=== PATIENT | female | born 1960 | race Caucasian/White ===

== ENCOUNTER → 2016-06-01 | Outpatient (CLI) | payer MEDICAID ==
[~2016-06-01] MED LIST: ASACOL HD800 M1 PO; ASPIR-LOW81 MG PO; ASPIRIN EC325 MG PO; ATORVASTATIN CA80 MG PO; BENTYL GENERIC10 MG PO; BENTYL20 MG PO; BISOPROLOL 5MG T5 MG PO; BUDESONIDE PO; CELEXA 20MG TAB20 MG PO; CIPRO 500MG TA500 MG PO; CITALOPRAM20 MG PO; ENTOCORT EC3 M1 PO; FISH OIL O1600 MG/5 PO; FUROSEMIDE40 MG PO; ISOSORBIDE MONO30 MG PO; ISOSORBIDE MONO60 MG PO; LASIX 40MG. TAB40 MG PO; LASIX 80MG. TAB80 MG PO; LISINOPRIL 10MG10 MG PO; LISINOPRIL 5MG T5 MG PO; LISINOPRIL2.5 MG PO; LOPERAMIDE2 MG PO; LOPID600 MG PO; LORAZEPAM1 MG/TABLE PO; MAG-OX 400MG T400 MG PO; METOPROLOL 25 M25 MG PO; NICODERM C21 MG/24 H TD; NITROSTAT0.4 MG SL; OMEPRAZOLE20 MG PO; PAXIL20 MG PO; PHENERGAN 25MG.25 M1 PO; PLAVIX75 MG PO; POTASSIUM CHLO20 ME2 PO; PRAVASTATIN 40M40 MG PO; PRILOSEC20 M1 PO; WELLBUTRIN 150150 MG PO; ZOFRAN ODT8 MG PO
--- NOTE | 2016-06-04 14:36 | RADIOLOGY REPORT PS360 ---
[facility] History and Indications: ASHD previous LA and congestive heart failure obesity hypertension hyperlipidemia tobacco use family history, chest pain and shortness of breath. Procedure: Patient received 0.4 mg of Lexiscan, resting heart rate was 85 bpm resting blood pressure 134/79, with Lexiscan maximum heart rate achieved was 98 bpm which is less than 85% of the maximum predicted heart rate, and the blood pressure was 141/76 with Lexiscan patient complained of chest pain and shortness of breath. Electrocardiogram: Resting electrocardiogram showed sinus rhythm first degree AV block abnormal P wave, anteroseptal infarct age indeterminate, with Lexiscan there is less than 1.[address] segment depression noted from the baseline EKG, the EKG portion of the Lexiscan is nondiagnostic Cardiac stress and resting SPECT images: Cardiac stress and rest SPECT images were obtained using technetium 99 Myoview 10.3 MCI at rest 31.4 MCI at stress, gated SPECT further analysis of segmental wall motion and calculation of the ejection fraction was also done. Cardiac stress and rest SPECT images show severely reduced tracer activity and moderate to large size area involving the anterior, anteroapical and anteroseptal wall mostly in the fixed pattern consistent with extensive area of prior myocardial scarring with minimal [place]ia-infarct ischemia at the apex. The left ventricle is dilated with stress and rest computer derived ejection fraction is 39% with marked anteroapical apex and anteroseptal wall akinesis, however there visually estimated ejection fraction is approximately 25-30%. The right ventricle is mildly enlarged with normal contractility. Conclusion: 1. The EKG portion of the Lexiscan is nondiagnostic. 2. Extensive prior myocardial scarring involving the anterior anteroapical, apical and anteroseptal wall with minimal [place]ia-infarct ischemia at the apex. Computer derived ejection fraction is 39% which is likely an over estimation by gated SPECT, however visually estimated ejection fraction is 25-30% with segmental wall motion abnormalities as described above, the right ventricle is mildly enlarged with normal contractility. 3. Abnormal Lexiscan Myoview study.
== END ==
LOC: RAD 07:01
DX: I50.9 Heart failure, unspecified (principal); R60.0 Localized edema; E78.5 Hyperlipidemia, unspecified; I10 Essential (primary) hypertension; R06.02 Shortness of breath; J44.9 Chronic obstructive pulmonary disease, unspecified
CPT/HCPCS: A9502; J2785

== ENCOUNTER 2016-06-12 07:17 | Inpatient (IN) | payer MEDICAID ==
[~2016-06-12] VITALS: Ht 165.1 cm; Wt 104.4 kg
[~2016-06-12 07:17] MED LIST changes: -LASIX 40MG. TAB40 MG PO; -LISINOPRIL 5MG T5 MG PO; -WELLBUTRIN 150150 MG PO
[2016-06-12 08:08] LABS: BUN 60 mg/dL (7-18); HEMOGLOBIN 11.2 g/dL (12.2-16.2)
[2016-06-12 08:09] LABS: GFR (ESTIMATED) 12 ML/MIN (59-); LYMPH # 1.8 K/mm3 (0.7-4.5); LYMPH % 23.5 % (10-50.0)
--- NOTE | 2016-06-12 12:20 | ACUTE CARE PROGRESS NOTE (QUA) ---
Progress Notes Subjective Date 06/12/16 Time 0900 Note 55 yo WF here as outpatient for cardiac cath this AM but labwork revealed worsening of renal status, likely due to recent increase in diuretics. The procedure was cancelled and pt admitted for IVF and monitoring of renal status. Cardiac cath was scheduled for further evaluation of chest pain, SOB and abnormal stress test. Objective Findings Last VS-Temp:98.2 B/P:128/57 Pulse:93 Resp:20 SaO2:89 Last weight lbs:219 oz:4 Kg: Method:Digital Scales Exam General appearance: awake, no acute distress, appears fatigued Cardiovascular: regular rate & rhythm Respiratory: clear to auscultation ABD: soft, no tenderness Extremities: moves all, no peripheral edema Neuro: alert, intact, oriented, speech clear Reviewed: medications, vital signs, lab results Assessment/Plan Problem List 1. Chest pain 2. Abnormal stress test 3. Dyspnea 4. Tobacco abuse 5. HTN (hypertension) 6. COPD (chronic obstructive pulmonary disease) 7. Cardiomyopathy Patient condition Guarded Plan: Admitted for IVF and monitoring of renal status. Postpone cardiac cath for now. This inpt stay is expected to cross 2 MNs from start of care Yes (Tramaine Bee) Assessment/Plan Problem List 1. Chest pain 2. Abnormal stress test 3. Dyspnea 4. Tobacco abuse 5. HTN (hypertension) 6. COPD (chronic obstructive pulmonary disease) 7. Cardiomyopathy (Ritika ALMAGUER,Rachid Cheng) at 1220
[2016-06-12] MEDS ORDERED: LASIX 40MG. TAB40 MG PO (12:46)
[2016-06-12] MEDS ORDERED: LISINOPRIL 5MG T5 MG PO (12:47)
[2016-06-12] MEDS ORDERED: WELLBUTRIN 150150 MG PO (12:50)
--- NOTE | 2016-06-12 14:11 | HISTORY AND PHYSICAL REPORT ---
Demographics: Admit date: 06/12/16 Chief complaint: sob PRIMARY DIAGNOSIS: ABN STRESS Allergies: Coded Allergies: mesalamine (From Asacol) (Severe, KIDNEY FAILURE 09/19/15) Penicillins (Intermediate, I-RASH, ITCHING 09/19/15) History of present illness: History of present illness: this wf who has cad and chf was seen today with abn stress and was found to be in arf and after consultation with card was admitted for ivf and then card eval- no chest pain at rest but feels sob and easlly fatigued with ambulation Past medical history: Family HX Family Hx Insignificant Yes Immunization HX DT/Tetanus 5-10 Years Ago Flu [id number] Flu Season Pneumonia Received In Past TB Test in last year No General Angina: Yes MO: No Hypertension? Yes Hyperlipidemia? Yes CHF? Yes COPD? Yes Asthma? No Anemia? Yes Hernia? Yes Thyroid Problems? No CVA? No Seizures? No Diabetes? No UTI? No Stones? No GB Disease: No Nephritic Syndrome? No Hepatitis? No Sickle Cell Disease? No Cataracts? No Glaucoma? No MRSA? No TB? No Cancer? No More? Yes Additional hx: DEPRESSION ANXIETY Past Surgical HX Previous Surgery?Y Hysterectomy-Total C-SECTIONS X 2 LEFT ELBOW ANGIOPLASTY STENTS X3 Current home meds: Active Scripts POTASSIUM CHL (Potassium Chloride) 20 MEQ PO DAILY #30 TAB Prov: 09/02/14 MAGNESIUM OXIDE (Magnesium Oxide) 400 MG PO BID #60 TAB Prov: 04/14/14 Reported Medications Furosemide (Lasix 80MG) 80 MG PO DAILY Isosorbide Mononitrate (Isosorbide Mononitrate ER) 30 MG PO DAILY Atorvastatin Calcium 80 MG PO QHS Dicyclomine Hcl (Bentyl (Generic) 10MG Capsule) 10 MG PO QID Lorazepam (Lorazepam 1MG) 1 MG PO BID Omeprazole (Omeprazole 20MG) 20 MG PO BID Gemfibrozil (Lopid) 600 MG PO BID Furosemide (Lasix 40MG) 40 MG PO DAILY LISINOPRIL (Lisinopril) 5 MG PO DAILY Bupropion Hcl Sr (Wellbutrin SR 150MG) 150 MG PO BID Social Hx: Smoking HX Tobacco Yes Type Cigarettes Packs/day < 1 PACK Are you/the child exposed to second-hand smoke: Yes Alcohol Alcohol: No Hx of Drug Use Drug Use? No Patien't marital status is Patient's support system is good Review of systems: Constitutional No: fever. Eyes No: drainage. Ears, Nose, Mouth, Throat No ear pain, No epistaxis, No throat pain Respiratory see HPI, shortness of breath. No: cough, wheezing. Cardiovascular see HPI, chest pain, No palpitations, No syncope, other Gastrointestinal/Abdominal see HPI, No constipated, No diarrhea, No nausea, poor appetite, poor fluid intake Genitourinary No: dysuria, frequency, hesitancy, hematuria. Musculoskeletal No: back pain, joint pain, neck pain. Skin No: rash. Neurological No: tremors, seizure disorder. Psychiatric No: depressed. Exam: Lab data for last 24 hours: Laboratory Tests 06/12/16 0750: Sodium 129 L, Potassium 5.2 H, Chloride 95 L, Carbon Dioxide 28, BUN 60 H, Creatinine 3.8 H, Estimated GFR (MDRD) 12 *L, Glucose 167 H, Calcium 9.1, WBC 7.6, RBC 3.85 L, Hgb 11.2 L, Hct 34.6 L, MCV 89.8, RDW 14.7, Plt Count 242, Gran % 71.5, Gran # 5.4, Lymphocytes % 23.5, Monocytes % 5.0, Lymphocytes # 1.8, Monocytes # 0.4, PUBS MCHC 32.4, MCH 29.1 Admission vital signs: 1ST Vital Signs Result Date Time Pulse Ox 89 06/12 901 B/P 128/57 06/12 901 Temp 98.2 06/12 901 Pulse 93 06/12 901 Resp 20 06/12 901 Exam General appearance: alert, awake Eyes: anicteric, PERRLA ENT: dry mucous membranes Neck: no JVD Cardiovascular: regular rate & rhythm, murmur Respiratory: diminished breath sounds ABD: soft Genitourinary: no hematuria Extremities: moves all Musculoskeletal: equal muscle strength Skin: dry Neuro: alert, site specialist II-XII nml as tested Plan: Problem List 1. Chest pain 2. Abnormal stress test 3. Dyspnea 4. Tobacco abuse 5. HTN (hypertension) 6. COPD (chronic obstructive pulmonary disease) 7. Cardiomyopathy 8. CAD (coronary artery disease) 9. Acute renal failure Plan: will hydrate and then card will eval pt at 4046
[2016-06-12 15:42] VITALS: BP 95/54
[2016-06-12 19:31] VITALS: BP 104/56
[2016-06-12 20:16] VITALS: BP 104/56
[2016-06-12 23:50] VITALS: BP 115/62
[2016-06-13 03:56] VITALS: BP 94/57
[2016-06-13 06:51] LABS: LYMPH # 1.8 K/mm3 (0.7-4.5); LYMPH % 33.3 % (10-50.0)
[2016-06-13 07:18] VITALS: BP 102/60
--- NOTE | 2016-06-13 07:30 | PHARMACY CLINIC NOTE ---
Patient Demographics Patient Demographics Admission date: 06/12/16 Date: 06/13/16 Time: 728 Allergies Coded Allergies: mesalamine (From Asacol) (Severe, KIDNEY FAILURE 09/19/15) Penicillins (Intermediate, I-RASH, ITCHING 09/19/15) HEIGHT- FT: 5 IN: 5.00 K.450 VTE General Information Labs: Laboratory Tests 06/12 0750 Hematology Hgb (12.2 - 16.2 g/dL) 11.2 L Hct (37.0 - 47.0 %) 34.6 L Plt Count (142 - 424 K/mm3) 242 Disclaimer The following section includes nursing documentation that has been pulled in for pharmacy review. Patient's VTE score: 5 Patient's VTE Risk: LOW RISK VTE prophylaxis NQF 0371 VTE prophylaxis ordered? Yes Type of prophylaxis/treatment: ROSCOE at 0730
[2016-06-13 07:37] LABS: HEMOGLOBIN 10.5 g/dL (12.2-16.2)
--- NOTE | 2016-06-13 08:29 | ACUTE CARE PROGRESS NOTE (QUA) ---
See Addendum Progress Notes Subjective Date 06/13/16 Time 0827 Note 55 yo WF in bed in NAD. Feeling better but still with fatigue and some SOA. No chest pains Objective Findings Last VS-Temp:98.3 B/P:102/60 Pulse:80 Resp:20 SaO2:92 ROOM AIR Last weight lbs:219 oz:4 [id number] Method:Digital Scales Exam General appearance: alert, awake, no acute distress Cardiovascular: regular rate & rhythm Respiratory: rhonchi, wheezing Extremities: moves all, no peripheral edema Neuro: alert, intact, oriented, speech clear Reviewed: medications, vital signs, lab results Assessment/Plan Problem List 1. Chest pain Qualifiers: Chest pain type: unspecified Qualified Code: R07.9 - Chest pain, unspecified 2. Abnormal stress test Assessment/Plan: Planning LHC when renal status returns to normal. 3. Dyspnea Qualifiers: Dyspnea type: shortness of breath Qualified Code: R06.02 - Shortness of breath 4. Tobacco abuse 5. HTN (hypertension) Qualifiers: Hypertension type: essential hypertension Qualified Code: I10 - Essential ( primary) hypertension 6. COPD (chronic obstructive pulmonary disease) 7. Cardiomyopathy 8. CAD (coronary artery disease) Qualifiers: Coronary Disease-Associated Artery/Lesion type: [place] artery [place] vs. transplanted heart: [place] heart Associated angina: with unstable angina Qualified Code: I25.110 - Atherosclerotic heart disease of [place] coronary artery with unstable angina pectoris 9. Acute renal failure Assessment/Plan: Cr down from 3.8 to 2.1 this AM. Continue IVF. Patient condition Improving Plan: Will tentatively plan for LHC in AM but will repeat BMP prior to final decision. Will obtain echo to evaluate LV size and function due to history of CAD/stents and also to evaluate RV size and function with history of COPD. This inpt stay is expected to cross 2 MNs from start of care Yes at 1232
--- NOTE | 2016-06-13 08:29 | ACUTE CARE PROGRESS NOTE (QUA) ---
See Addendum Progress Notes Subjective Date 06/13/16 Time 0827 Note 55 yo WF in bed in NAD. Feeling better but still with fatigue and some SOA. No chest pains Objective Findings Last VS-Temp:98.3 B/P:102/60 Pulse:80 Resp:20 SaO2:92 ROOM AIR Last weight lbs:219 oz:4 [id number] Method:Digital Scales Exam General appearance: alert, awake, no acute distress Cardiovascular: regular rate & rhythm Respiratory: rhonchi, wheezing Extremities: moves all, no peripheral edema Neuro: alert, intact, oriented, speech clear Reviewed: medications, vital signs, lab results Assessment/Plan Problem List 1. Chest pain Qualifiers: Chest pain type: unspecified Qualified Code: R07.9 - Chest pain, unspecified 2. Abnormal stress test Assessment/Plan: Planning LHC when renal status returns to normal. 3. Dyspnea Qualifiers: Dyspnea type: shortness of breath Qualified Code: R06.02 - Shortness of breath 4. Tobacco abuse 5. HTN (hypertension) Qualifiers: Hypertension type: essential hypertension Qualified Code: I10 - Essential ( primary) hypertension 6. COPD (chronic obstructive pulmonary disease) 7. Cardiomyopathy 8. CAD (coronary artery disease) Qualifiers: Coronary Disease-Associated Artery/Lesion type: [place] artery [place] vs. transplanted heart: [place] heart Associated angina: with unstable angina Qualified Code: I25.110 - Atherosclerotic heart disease of [place] coronary artery with unstable angina pectoris 9. Acute renal failure Assessment/Plan: Cr down from 3.8 to 2.1 this AM. Continue IVF. Patient condition Improving Plan: Will tentatively plan for LHC in AM but will repeat BMP prior to final decision. Will obtain echo to evaluate LV size and function due to history of CAD/stents and also to evaluate RV size and function with history of COPD. This inpt stay is expected to cross 2 MNs from start of care Yes at 1235
--- NOTE | 2016-06-13 13:00 | ACUTE CARE PROGRESS NOTE (QUA) ---
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 Chest pain 2. Abnormal stress test 3. Dyspnea 4. Tobacco abuse 5. HTN (hypertension) 6. COPD (chronic obstructive pulmonary disease) 7. Cardiomyopathy 8. CAD (coronary artery disease) 9. Acute renal failure Patient condition Improving Plan: make medication changes This inpt stay is expected to cross 2 MNs from start of care Yes at 1300
--- NOTE | 2016-06-13 13:00 | ACUTE CARE PROGRESS NOTE (QUA) ---
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 Chest pain 2. Abnormal stress test 3. Dyspnea 4. Tobacco abuse 5. HTN (hypertension) 6. COPD (chronic obstructive pulmonary disease) 7. Cardiomyopathy 8. CAD (coronary artery disease) 9. Acute renal failure Patient condition Improving Plan: make medication changes This inpt stay is expected to cross 2 MNs from start of care Yes at 1300
[2016-06-13 15:36] VITALS: BP 101/50
[2016-06-13 19:33] VITALS: BP 92/54
[2016-06-13 23:40] VITALS: BP 91/47
[2016-06-14] VITALS (10 sets, daily range): BP systolic 103–145; BP diastolic 51–89
--- NOTE | 2016-06-14 08:13 | ACUTE CARE PROGRESS NOTE (QUA) ---
Progress Notes Subjective Date 06/14/16 Time 0811 Note 55 yo WF in bed in NAD. No chest pain overnight. Still with SOA and wheezing on exam. Objective Findings Last VS-Temp:97.5 B/P:115/60 Pulse:69 Resp:16 SaO2:95 ROOM AIR Last weight lbs:230 oz:4 K.44 Method:Bed Scales Exam General appearance: alert, awake, no acute distress Cardiovascular: regular rate & rhythm Respiratory: expiratory wheezing Extremities: moves all, no peripheral edema Neuro: alert, intact, oriented Reviewed: medications, vital signs, lab results Assessment/Plan Problem List 1. Chest pain Qualifiers: Chest pain type: unspecified Qualified Code: R07.9 - Chest pain, unspecified 2. Abnormal stress test 3. Dyspnea Qualifiers: Dyspnea type: shortness of breath Qualified Code: R06.02 - Shortness of breath 4. Tobacco abuse 5. HTN (hypertension) Qualifiers: Hypertension type: essential hypertension Qualified Code: I10 - Essential ( primary) hypertension 6. COPD (chronic obstructive pulmonary disease) 7. Cardiomyopathy 8. CAD (coronary artery disease) Qualifiers: Coronary Disease-Associated Artery/Lesion type: [place] artery [place] vs. transplanted heart: [place] heart Associated angina: with unstable angina Qualified Code: I25.110 - Atherosclerotic heart disease of [place] coronary artery with unstable angina pectoris 9. Acute renal failure Patient condition Stable Plan: Cr down to 1.3 today. Will proceed with cardiac cath this AM. This inpt stay is expected to cross 2 MNs from start of care Yes at 0813
--- NOTE | 2016-06-14 08:13 | ACUTE CARE PROGRESS NOTE (QUA) ---
Progress Notes Subjective Date 06/14/16 Time 0811 Note 55 yo WF in bed in NAD. No chest pain overnight. Still with SOA and wheezing on exam. Objective Findings Last VS-Temp:97.5 B/P:115/60 Pulse:69 Resp:16 SaO2:95 ROOM AIR Last weight lbs:230 oz:4 K.44 Method:Bed Scales Exam General appearance: alert, awake, no acute distress Cardiovascular: regular rate & rhythm Respiratory: expiratory wheezing Extremities: moves all, no peripheral edema Neuro: alert, intact, oriented Reviewed: medications, vital signs, lab results Assessment/Plan Problem List 1. Chest pain Qualifiers: Chest pain type: unspecified Qualified Code: R07.9 - Chest pain, unspecified 2. Abnormal stress test 3. Dyspnea Qualifiers: Dyspnea type: shortness of breath Qualified Code: R06.02 - Shortness of breath 4. Tobacco abuse 5. HTN (hypertension) Qualifiers: Hypertension type: essential hypertension Qualified Code: I10 - Essential ( primary) hypertension 6. COPD (chronic obstructive pulmonary disease) 7. Cardiomyopathy 8. CAD (coronary artery disease) Qualifiers: Coronary Disease-Associated Artery/Lesion type: [place] artery [place] vs. transplanted heart: [place] heart Associated angina: with unstable angina Qualified Code: I25.110 - Atherosclerotic heart disease of [place] coronary artery with unstable angina pectoris 9. Acute renal failure Patient condition Stable Plan: Cr down to 1.3 today. Will proceed with cardiac cath this AM. This inpt stay is expected to cross 2 MNs from start of care Yes at 0813
--- NOTE | 2016-06-14 09:18 | ACUTE CARE PROGRESS NOTE (QUA) ---
Progress Notes Subjective Date 06/14/16 Time 0918 Patient/family reports: feeling better, no complaints Nursing reports: alert Objective Findings Laboratory Tests 06/14/16 0615: Sodium 140, Potassium 4.3, Chloride 106, Carbon Dioxide 30, BUN 25 H, Creatinine 1.3 H, Estimated Creat Clear 81, Estimated GFR (MDRD) 43 L, Glucose 127 H, Calcium 8.6 Vital Signs Date Time Temp Pulse Resp B/P Pulse O2 O2 Flow FiO2 Ox Delivery Rate 06/14 737 97.5 69 16 115/60 95 ROOM AIR 06/14 0352 97.5 71 16 114/67 91 ROOM AIR 06/14 0010 66 103/58 06/13 2340 97.8 71 16 91/47 91 ROOM AIR 06/13 2124 98.3 79 18 92/54 91 06/13 2120 18 06/13 1933 98.3 79 18 92/54 91 ROOM AIR 06/13 1536 97.9 76 20 101/50 93 ROOM AIR Current Medications Fentanyl Citrate 25 MCG PRN PRN IV Fentanyl Citrate 50 MCG PRN PRN IV Flumazenil 0.2 MG PRN PRN IV Heparin Sodium/Sodium Chloride 3,000 UNITS PRN PRN IV Midazolam HCl 1 MG PRN PRN IV Midazolam HCl 1 MG PRN PRN IV Naloxone HCl 0.4 MG [id number] PRN IV Nitroglycerin 800 MCG PRN PRN IV Verapamil HCl 5 MG PRN PRN IV Lidocaine HCl 20 ML ONCE ONE IJ (DC) Diphenhydramine HCl 0 .STK-MED ONE .ROUTE (DC) Heparin Sodium/Sodium Chloride 1,500 ML .STK-MED ONE IV (DC) Lidocaine HCl 0 .STK-MED ONE .ROUTE (DC) Sodium Chloride 1,000 ML .STK-MED ONE IV (DC) Lorazepam 0 .STK-MED ONE .ROUTE (DC) Bupropion HCl 150 MG BID PO Benzonatate 0 .STK-MED ONE PO (DC) Benzonatate 100 MG TID PRN PO Isosorbide Mononitrate 30 MG DAILY PO Polyethylene Glycol 17 GM DAILY PO Atorvastatin Calcium 80 MG QHS PO Bisoprolol Fumarate 2.5 MG BID PO Lorazepam 1 MG BID PO Pantoprazole Sodium 40 MG QHS PO Sodium Chloride 10 ML PRN PRN IV Acetaminophen 650 MG Q4HP PRN PO Nicotine 21 MG DAILYP PRN TD Ondansetron HCl 4 MG Q6HP PRN IV Sodium Chloride 1,000 ML .Q10H IV Last VS-Temp:97.5 B/P:115/60 Pulse:69 Resp:16 SaO2:95 ROOM AIR Last weight lbs:230 oz:4 K.44 Method:Bed Scales Exam General appearance: normal appearance, alert, active, no acute distress Eyes: normal exam ENT: normal exam Neck: normal inspection, full range of motion Cardiovascular: normal exam, regular rate & rhythm Respiratory: normal exam, clear to auscultation ABD: normal exam, soft Genitourinary: normal voiding & quantity Extremities: normal exam, moves all Musculoskeletal: normal exam Skin: normal exam, intact, no gross abnormalities, warm Neuro: normal exam, alert, intact, oriented Reviewed: allergies, medications, vital signs, lab results Assessment/Plan Problem List 1. Chest pain Qualifiers: Chest pain type: unspecified Qualified Code: R07.9 - Chest pain, unspecified 2. Abnormal stress test 3. Dyspnea Qualifiers: Dyspnea type: shortness of breath Qualified Code: R06.02 - Shortness of breath 4. Tobacco abuse 5. HTN (hypertension) Qualifiers: Hypertension type: essential hypertension Qualified Code: I10 - Essential ( primary) hypertension 6. COPD (chronic obstructive pulmonary disease) 7. Cardiomyopathy 8. CAD (coronary artery disease) Qualifiers: Coronary Disease-Associated Artery/Lesion type: [place] artery [place] vs. transplanted heart: [place] heart Associated angina: with unstable angina Qualified Code: I25.110 - Atherosclerotic heart disease of [place] coronary artery with unstable angina pectoris 9. 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 rounded with verenice at 0918
--- NOTE | 2016-06-14 09:18 | ACUTE CARE PROGRESS NOTE (QUA) ---
Progress Notes Subjective Date 06/14/16 Time 0918 Patient/family reports: feeling better, no complaints Nursing reports: alert Objective Findings Laboratory Tests 06/14/16 0615: Sodium 140, Potassium 4.3, Chloride 106, Carbon Dioxide 30, BUN 25 H, Creatinine 1.3 H, Estimated Creat Clear 81, Estimated GFR (MDRD) 43 L, Glucose 127 H, Calcium 8.6 Vital Signs Date Time Temp Pulse Resp B/P Pulse O2 O2 Flow FiO2 Ox Delivery Rate 06/14 737 97.5 69 16 115/60 95 ROOM AIR 06/14 0352 97.5 71 16 114/67 91 ROOM AIR 06/14 0010 66 103/58 06/13 2340 97.8 71 16 91/47 91 ROOM AIR 06/13 2124 98.3 79 18 92/54 91 06/13 2120 18 06/13 1933 98.3 79 18 92/54 91 ROOM AIR 06/13 1536 97.9 76 20 101/50 93 ROOM AIR Current Medications Fentanyl Citrate 25 MCG PRN PRN IV Fentanyl Citrate 50 MCG PRN PRN IV Flumazenil 0.2 MG PRN PRN IV Heparin Sodium/Sodium Chloride 3,000 UNITS PRN PRN IV Midazolam HCl 1 MG PRN PRN IV Midazolam HCl 1 MG PRN PRN IV Naloxone HCl 0.4 MG [id number] PRN IV Nitroglycerin 800 MCG PRN PRN IV Verapamil HCl 5 MG PRN PRN IV Lidocaine HCl 20 ML ONCE ONE IJ (DC) Diphenhydramine HCl 0 .STK-MED ONE .ROUTE (DC) Heparin Sodium/Sodium Chloride 1,500 ML .STK-MED ONE IV (DC) Lidocaine HCl 0 .STK-MED ONE .ROUTE (DC) Sodium Chloride 1,000 ML .STK-MED ONE IV (DC) Lorazepam 0 .STK-MED ONE .ROUTE (DC) Bupropion HCl 150 MG BID PO Benzonatate 0 .STK-MED ONE PO (DC) Benzonatate 100 MG TID PRN PO Isosorbide Mononitrate 30 MG DAILY PO Polyethylene Glycol 17 GM DAILY PO Atorvastatin Calcium 80 MG QHS PO Bisoprolol Fumarate 2.5 MG BID PO Lorazepam 1 MG BID PO Pantoprazole Sodium 40 MG QHS PO Sodium Chloride 10 ML PRN PRN IV Acetaminophen 650 MG Q4HP PRN PO Nicotine 21 MG DAILYP PRN TD Ondansetron HCl 4 MG Q6HP PRN IV Sodium Chloride 1,000 ML .Q10H IV Last VS-Temp:97.5 B/P:115/60 Pulse:69 Resp:16 SaO2:95 ROOM AIR Last weight lbs:230 oz:4 K.44 Method:Bed Scales Exam General appearance: normal appearance, alert, active, no acute distress Eyes: normal exam ENT: normal exam Neck: normal inspection, full range of motion Cardiovascular: normal exam, regular rate & rhythm Respiratory: normal exam, clear to auscultation ABD: normal exam, soft Genitourinary: normal voiding & quantity Extremities: normal exam, moves all Musculoskeletal: normal exam Skin: normal exam, intact, no gross abnormalities, warm Neuro: normal exam, alert, intact, oriented Reviewed: allergies, medications, vital signs, lab results Assessment/Plan Problem List 1. Chest pain Qualifiers: Chest pain type: unspecified Qualified Code: R07.9 - Chest pain, unspecified 2. Abnormal stress test 3. Dyspnea Qualifiers: Dyspnea type: shortness of breath Qualified Code: R06.02 - Shortness of breath 4. Tobacco abuse 5. HTN (hypertension) Qualifiers: Hypertension type: essential hypertension Qualified Code: I10 - Essential ( primary) hypertension 6. COPD (chronic obstructive pulmonary disease) 7. Cardiomyopathy 8. CAD (coronary artery disease) Qualifiers: Coronary Disease-Associated Artery/Lesion type: [place] artery [place] vs. transplanted heart: [place] heart Associated angina: with unstable angina Qualified Code: I25.110 - Atherosclerotic heart disease of [place] coronary artery with unstable angina pectoris 9. 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 rounded with verenice at 0918
--- NOTE | 2016-06-14 14:46 | RADIOLOGY REPORT PS360 ---
CARDIAC CATHETERIZATION DATE OF CATHETERIZATION:06/14/2016 1:25 PM PROCEDURES: 1. Left heart catheterization 2. Selective coronary angiogram 3. Left ventriculogram 4. Bilateral selective renal angiogram INDICATION FOR TEST: 1. Coronary artery disease 2. Angina pectoris 3. Abnormal Myoview 4. Recent acute renal failure Informed consent was obtained prior to the procedure. COMPLICATIONS: None ESTIMATED BLOOD LOSS: Less than 10 ml. TECHNIQUE: One percent lidocaine was used to anesthetize the right groin. The right femoral artery was accessed via the Seldinger technique. A 4-Spanish sheath was placed in the right femoral artery. The JL-4 and JR-4 catheter was also used to perform left heart catheterization and left ventriculography. The JR4 catheter was used to selectively intubate each renal artery. At the end of the procedure the patient was transferred to the postop holding area in stable condition for sheath removal ANGIOGRAPHIC RESULTS: 1. The left main artery normal 2. The left anterior descending artery has a stent in the proximal segment which is widely patent free of in-stent restenosis. Both proximally and distally to the stent there is excellent transitioning 3. The circumflex artery is a large dominant vessel and has proximal concentric 40-50% stenosis remaining vessel has 10% luminal irregularities 4. The right coronary artery is a nondominant vessel with mild mid vessel 10% stenoses 5. The ANN ventriculogram reveals normal 65% 6. The left ventricular end-diastolic pressure elevated 25 mmHg 7. The left renal artery has mild fibromuscular dysplasia throughout the proximal and mid segment 8. The right renal artery has a spontaneous large dissection in its midportion however there is excellent flow proximally and distally. This dissection appears to be more of an angiographic finding rather than a physiologically significant lesion IMPRESSION: 1. Patent stent in the proximal LAD 2. Moderate nonflow limiting plaque in the proximal dominant right coronary artery 3. Normal ejection fraction 4. Moderate to severely elevated LVEDP 5. Mild left fibromuscular dysplasia involving the renal arteries 6. 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 Normally I would not perform captopril renal study however because of this dissection I think it would be reasonable to determine if perfusion discrepancies exist between the 2 kidneys. 2. Continue dual antiplatelet therapy 3. Continue risk factor modification
[2016-06-15 03:58] VITALS: BP 131/73
[2016-06-15 07:51] VITALS: BP 160/91
[2016-06-15 08:13] VITALS: BP 160/91
--- NOTE | 2016-06-15 08:21 | ACUTE CARE PROGRESS NOTE (QUA) ---
Progress Notes Subjective Date 06/15/16 Time 0814 Note 55 yo WF in bed in NAD. Discussed results of cardiac cath and urged patient to stop smoking. Objective Findings Last VS-Temp:97.8 B/P:160/91 Pulse:75 Resp:18 SaO2:92 ROOM AIR Last weight lbs:230 oz:3 K.411 Method:Bed Scales Exam General appearance: alert, awake, no acute distress Cardiovascular: regular rate & rhythm Respiratory: clear to auscultation Extremities: moves all, no peripheral edema Neuro: alert, intact, oriented Reviewed: medications, vital signs, lab results Assessment/Plan Problem List 1. Chest pain Assessment/Plan: Mild to moderate CAD by cath this admission. Evaluate for non-cardiac etiology of chest pain. Qualifiers: Chest pain type: unspecified Qualified Code: R07.9 - Chest pain, unspecified 2. Abnormal stress test 3. Dyspnea Qualifiers: Dyspnea type: shortness of breath Qualified Code: R06.02 - Shortness of breath 4. Tobacco abuse 5. HTN (hypertension) Qualifiers: Hypertension type: essential hypertension Qualified Code: I10 - Essential ( primary) hypertension 6. COPD (chronic obstructive pulmonary disease) 7. Cardiomyopathy Assessment/Plan: Normal LVEF on cath. 8. CAD (coronary artery disease) Assessment/Plan: Mild to mod by cath. Risk factor modification recommended. Continue statin, aspirin and urged tobacco cessation. Qualifiers: Coronary Disease-Associated Artery/Lesion type: [place] artery [place] vs. transplanted heart: [place] heart Associated angina: with unstable angina Qualified Code: I25.110 - Atherosclerotic heart disease of [place] coronary artery with unstable angina pectoris 9. Acute renal failure Patient condition Stable Plan: OK for discharge from cardiology standpoint. Continue ASA 81 mg daily, Bisoprolol 2.5 mg BID and atorvastatin 80 mg daily. Follow up in 2 wks. This inpt stay is expected to cross 2 MNs from start of care Yes at 0820
--- NOTE | 2016-06-15 08:21 | ACUTE CARE PROGRESS NOTE (QUA) ---
Progress Notes Subjective Date 06/15/16 Time 0814 Note 55 yo WF in bed in NAD. Discussed results of cardiac cath and urged patient to stop smoking. Objective Findings Last VS-Temp:97.8 B/P:160/91 Pulse:75 Resp:18 SaO2:92 ROOM AIR Last weight lbs:230 oz:3 K.411 Method:Bed Scales Exam General appearance: alert, awake, no acute distress Cardiovascular: regular rate & rhythm Respiratory: clear to auscultation Extremities: moves all, no peripheral edema Neuro: alert, intact, oriented Reviewed: medications, vital signs, lab results Assessment/Plan Problem List 1. Chest pain Assessment/Plan: Mild to moderate CAD by cath this admission. Evaluate for non-cardiac etiology of chest pain. Qualifiers: Chest pain type: unspecified Qualified Code: R07.9 - Chest pain, unspecified 2. Abnormal stress test 3. Dyspnea Qualifiers: Dyspnea type: shortness of breath Qualified Code: R06.02 - Shortness of breath 4. Tobacco abuse 5. HTN (hypertension) Qualifiers: Hypertension type: essential hypertension Qualified Code: I10 - Essential ( primary) hypertension 6. COPD (chronic obstructive pulmonary disease) 7. Cardiomyopathy Assessment/Plan: Normal LVEF on cath. 8. CAD (coronary artery disease) Assessment/Plan: Mild to mod by cath. Risk factor modification recommended. Continue statin, aspirin and urged tobacco cessation. Qualifiers: Coronary Disease-Associated Artery/Lesion type: [place] artery [place] vs. transplanted heart: [place] heart Associated angina: with unstable angina Qualified Code: I25.110 - Atherosclerotic heart disease of [place] coronary artery with unstable angina pectoris 9. Acute renal failure Patient condition Stable Plan: OK for discharge from cardiology standpoint. Continue ASA 81 mg daily, Bisoprolol 2.5 mg BID and atorvastatin 80 mg daily. Follow up in 2 wks. This inpt stay is expected to cross 2 MNs from start of care Yes at 0820
[2016-06-15] MEDS ORDERED: BISOPROLOL 5MG T5 MG PO (08:27)
--- NOTE | 2016-06-15 08:34 | ACUTE CARE PROGRESS NOTE (QUA) ---
Progress Notes Subjective Date 06/15/16 Time 0829 Patient/family reports: feeling better, no complaints Nursing reports: alert Objective Findings Vital Signs Date Time Temp Pulse Resp B/P Pulse O2 O2 Flow FiO2 Ox Delivery Rate 06/15 0813 97.8 75 18 160/91 92 / 0808 18 06/15 0751 97.8 75 18 160/91 92 ROOM AIR 06/15 0358 97.7 74 16 131/73 91 ROOM AIR 06/14 2351 97.9 77 18 106/51 95 ROOM AIR 06/14 2135 68 18 128/72 06/14 2128 97.5 77 20 142/83 95 / 2115 20 06/14 2035 70 18 132/77 06/14 1935 98.2 69 18 145/89 06/14 1835 77 18 114/66 06/14 1735 78 18 142/69 06/14 1705 76 18 127/74 06/14 1638 97.5 77 20 142/83 95 ROOM AIR 02/ 1637 97.5 70 20 110/71 95 ROOM AIR / 1637 97.5 72 20 115/79 95 ROOM AIR 02/ 1634 97.5 71 20 113/69 95 ROOM AIR 02/ 1633 97.5 73 20 113/73 95 ROOM AIR 02/ 1632 97.5 73 20 117/70 95 ROOM AIR 02/ 1632 97.5 74 20 116/65 95 ROOM AIR 02/ 1629 97.5 74 20 116/65 95 ROOM AIR / 1629 97.5 77 20 109/66 95 ROOM AIR / 1624 77 20 142/83 06/14 1623 97.5 77 20 142/83 95 ROOM AIR / 1619 97.5 76 20 114/74 95 / 1524 20 06/14 1349 18 Current Medications Lorazepam 0 .STK-MED ONE .ROUTE (DC) Acetaminophen 0 .STK-MED ONE PO (DC) Lorazepam 0 .STK-MED ONE .ROUTE (DC) Acetaminophen/Hydrocodone Bitart 2 TAB ONCE ONE PO (DC) Acetaminophen/Hydrocodone Bitart 0 .STK-MED ONE PO (DC) Iopamidol 90 ML ONCE ONE IV (DC) Heparin Sodium (Beef Lung) 0 .STK-MED ONE .ROUTE (DC) Heparin Sodium/Sodium Chloride 1,000 ML .STK-MED ONE IV (DC) Nitroglycerin 0 .STK-MED ONE IV (DC) Sodium Chloride 1,000 ML .STK-MED ONE IV (DC) Lidocaine HCl 0 .STK-MED ONE .ROUTE (DC) Fentanyl Citrate 25 MCG PRN PRN IV (DC) Fentanyl Citrate 50 MCG PRN PRN IV (DC) Flumazenil 0.2 MG PRN PRN IV (DC) Heparin Sodium/Sodium Chloride 3,000 UNITS PRN PRN IV Midazolam HCl 1 MG PRN PRN IV (DC) Midazolam HCl 1 MG PRN PRN IV (DC) Naloxone HCl 0.4 MG [id number] PRN IV (DC) Nitroglycerin 800 MCG PRN PRN IV Verapamil HCl 5 MG PRN PRN IV Bupropion HCl 150 MG BID PO Benzonatate 100 MG TID PRN PO Isosorbide Mononitrate 30 MG DAILY PO Polyethylene Glycol 17 GM DAILY PO Atorvastatin Calcium 80 MG QHS PO Bisoprolol Fumarate 2.5 MG BID PO Lorazepam 1 MG BID PO Pantoprazole Sodium 40 MG QHS PO Sodium Chloride 10 ML PRN PRN IV Acetaminophen 650 MG Q4HP PRN PO Nicotine 21 MG DAILYP PRN TD Ondansetron HCl 4 MG Q6HP PRN IV Sodium Chloride 1,000 ML .Q10H IV Last VS-Temp:97.8 B/P:160/91 Pulse:75 Resp:18 SaO2:92 ROOM AIR Last weight lbs:230 oz:3 K.411 Method:Bed Scales Exam General appearance: normal appearance, alert, active, awake, no acute distress Eyes: normal exam ENT: normal exam Neck: normal inspection, full range of motion Cardiovascular: normal exam, regular rate & rhythm Respiratory: normal exam, clear to auscultation, good air movement, no respiratory distress ABD: normal exam, soft Genitourinary: normal voiding & quantity Extremities: normal exam, warm Musculoskeletal: normal exam Skin: normal exam, intact, warm Neuro: normal exam, alert, intact, oriented Reviewed: allergies, medications, vital signs, lab results, radiology report, consult note Assessment/Plan Problem List 1. Chest pain Qualifiers: Chest pain type: unspecified Qualified Code: R07.9 - Chest pain, unspecified 2. Abnormal stress test 3. Dyspnea Qualifiers: Dyspnea type: shortness of breath Qualified Code: R06.02 - Shortness of breath 4. Tobacco abuse 5. HTN (hypertension) Qualifiers: Hypertension type: essential hypertension Qualified Code: I10 - Essential ( primary) hypertension 6. COPD (chronic obstructive pulmonary disease) 7. Cardiomyopathy 8. CAD (coronary artery disease) Qualifiers: Coronary Disease-Associated Artery/Lesion type: [place] artery [place] vs. transplanted heart: [place] heart Associated angina: with unstable angina Qualified Code: I25.110 - Atherosclerotic heart disease of [place] coronary artery with unstable angina pectoris 9. Acute renal failure Patient condition Stable Plan: initiate discharge plan This inpt stay is expected to cross 2 MNs from start of care Yes Comments: ROUNDED WITH DAMIAN. DISCUSSED WITH YEIMY WELSH DC at 0892
--- NOTE | 2016-06-15 08:37 | DISCHARGE SUMMARY STANDARD ---
Demographics Admit date: 06/12/16 Discharge date: 06/15/16 History of present illness History of present illness this wf who has cad and chf was seen today with abn stress and was found to be in arf and after consultation with card was admitted for ivf and then card eval- no chest pain at rest but feels sob and easlly fatigued with ambulation Hospital Course Hospital Course: CHEST PAIN-CARDIOLOGY CONSULT, CARDIAC WORK UP, EKG,MONITORING VS,HEART CATH- SEE REPORT. ENCOURAGED TO STOP SMOKING, FOLLOW UP WITH CARDIOLOGY IN 1 WEEK Discharge diagnoses Problem List 1. Chest pain 2. Abnormal stress test 3. Dyspnea 4. Tobacco abuse 5. HTN (hypertension) 6. COPD (chronic obstructive pulmonary disease) 7. Cardiomyopathy 8. CAD (coronary artery disease) 9. Acute renal failure Medications Medications: Discharge meds are as noted. Follow up Follow up in office in: 7 DAYS with: Damian ALMAGUER,Rachid Cheng Comment: ROUNDED WITH DAMIAN at 0802
[2016-06-15 09:00] VITALS: BP 160/91
== END 2016-06-15 09:45 | disposition home or self-care (01) | DRG 682 ==
LOC: CATHLAB 07:17 → 2ND 08:54 → ICU 08:54 → 2ND 15:03
PROVIDERS: Emergency Medicine; Internal Medicine
PROC: B2111ZZ Fluoroscopy of Multiple Coronary Arteries using Low Osmolar Contrast (ICD-10-PCS; 2016-06-14)
PROC: B2151ZZ Fluoroscopy of Left Heart using Low Osmolar Contrast (ICD-10-PCS; 2016-06-14)
PROC: B4181ZZ Fluoroscopy of Bilateral Renal Arteries using Low Osmolar Contrast (ICD-10-PCS; 2016-06-14)
PROC: 4A023N7 Measurement of Cardiac Sampling and Pressure, Left Heart, Percutaneous Approach (ICD-10-PCS; principal; 2016-06-14 09:45)
DX: N17.9 Acute kidney failure, unspecified (principal); I77.73 Dissection of renal artery; I42.9 Cardiomyopathy, unspecified; I25.119 Atherosclerotic heart disease of native coronary artery with unspecified angina pectoris; I25.83 Coronary atherosclerosis due to lipid rich plaque; R94.39 Abnormal result of other cardiovascular function study; I77.3 Arterial fibromuscular dysplasia; T50.2X5A Adverse effect of carbonic-anhydrase inhibitors, benzothiadiazides and other diuretics, initial encounter; Z72.0 Tobacco use; I10 Essential (primary) hypertension; J44.9 Chronic obstructive pulmonary disease, unspecified; Z95.5 Presence of coronary angioplasty implant and graft
CPT/HCPCS: C1725; C1769; J1644; Q9967

== ENCOUNTER → 2017-01-09 | Outpatient (CLI) | payer MEDICAID ==
[~2017-01-09] MED LIST changes: +LASIX 40MG. TAB40 MG PO; +LISINOPRIL 5MG T5 MG PO; +WELLBUTRIN 150150 MG PO
--- NOTE | 2017-01-09 15:08 | RADIOLOGY REPORT PS360 ---
CHEST(2 VIEWS-NOT PORTABLE) HISTORY: Cough BRONCHITIS ORDERING PHYSICIAN: THIERNO LAY PATIENT AGE: 56 years COMPARISON: 05/17/2016 FINDINGS: Borderline cardiomegaly without failure.. Patchy density is present in the right lower lobe and lingula consistent with bilateral pneumonia. No effusions. No acute bony anomalies. IMPRESSION: Bilateral pneumonia
[2017-01-09 15:54] LABS: BUN 14 mg/dL (7-18); GFR (ESTIMATED) 46 ML/MIN (59-)
== END ==
LOC: LAB 14:04
PROVIDERS: Nurse Practitioner Family
DX: J40 Bronchitis, not specified as acute or chronic (principal)

== ENCOUNTER → 2017-01-22 | Outpatient (CLI) | payer MEDICAID | LOC: RT 09:41 | DX: R06.02 Shortness of breath (principal) ==

== ENCOUNTER → 2017-03-14 | Outpatient (CLI) | payer MEDICAID | LOC: SL 19:46 | DX: G47.10 Hypersomnia, unspecified (principal); R06.83 Snoring ==